=== PATIENT | male | born 1955 | race Caucasian/White ===

== ENCOUNTER 2019-07-19 14:55 | Inpatient (IN) | payer BC, OTHER ==
[~2019-07-19] VITALS: Ht 193 cm; Wt 133.8 kg
[2019-07-19 15:31] LABS: BASOPHILS # (AUTO) 0.03 x10^3/uL (0-0.1); BASOPHILS % (AUTO) 1 % (0-1); EOSINOPHILS % (AUTO) 2 % (1-7); LYMPHOCYTES # (AUTO) 1.94 x10^3/uL (1-3.4); LYMPHOCYTES % (AUTO) 33 % (22-44); MD NO; MEAN CORPUSCULAR HEMOGLOBIN 32.7 pg (27.5-34.5); MEAN CORPUSCULAR HGB CONC 33.9 g/dL (33.2-36.2); MEAN CORPUSCULAR VOLUME 96.5 fL (81-97); MEAN PLATELET VOLUME 7.6 fL (7.4-10.4); MONOCYTES # (AUTO) 0.58 x10^3/uL (0.2-0.8); MONOCYTES % (AUTO) 10 % (2-9); NEUTROPHILS % (AUTO) 55 % (42-75); PLATELET COUNT 266 x10^3/uL (130-400); RED BLOOD COUNT 4.69 x10^6/uL (4.38-5.82); RED CELL DISTRIBUTION WIDTH 13.6 % (9.4-14.8)
[2019-07-19 15:39] LABS: ALBUMIN 3.9 g/dL (3.4-5.0); ANION GAP 6 mmol/L (5-15); CALCIUM 9.2 mg/dL (8.5-10.1); CHLORIDE 107 mmol/L (98-107); CREATININE 1.05 mg/dL (0.7-1.3)
[2019-07-19 15:42] LABS: TROPONIN I < 0.015 ng/mL (0.000-0.045)
--- NOTE | 2019-07-19 22:13 | NUR ---
THIS IS A 64Y M THAT COMES IN W/ C/O MULTIPLE EPISODES OF DIZZINESS AND SPOTTY VISION YESTERDAY WHILE AT A CONFERENCE FOR WORK IN [place]. PT DENIES SYMPTOMS TODAY AFTER RETURNING HOME BUT IS CONCERNED AND WANTED TO BE CHECKED OUT JUST IN CASE. PT HAS NO MEDICAL HX, PT CONNECTED TO ALL MONITORING VSS. NADN. AT BEDSIDE. CALL LIGHT IN REACH AWAITING FURTHER ORDERS AT THIS TIME.
--- NOTE | 2019-07-19 22:46 | NUR ---
MD AT BEDSIDE TO ASSESS PT AND DISCUSS POC
--- NOTE | 2019-07-19 23:29 | NUR ---
ALL RESULTS BACK AT THIS TIME CHART UP FOR RECHECK
--- NOTE | 2019-07-19 23:43 | NUR ---
AT BEDSIDE TO DISCUSS POC WITH PT AT THIS TIME
--- NOTE | 2019-07-19 23:54 | NUR ---
HOSPITALIST AT BEDSIDE TO ADMIT PT
[2019-07-20] MEDS ORDERED: ACETAMINOPHEN 325 MG TABLET PO PRN
--- NOTE | 2019-07-20 00:14 | NUR ---
REPORT CALLED TO [facility], ALL QUESTIONS ADDRESSED PT READY FOR TRANSPORT
[2019-07-20 00:24] VITALS: BP 143/82
[2019-07-20 05:02] LABS: BASOPHILS # (AUTO) 0.03 x10^3/uL (0-0.1); BASOPHILS % (AUTO) 1 % (0-1); EOSINOPHILS # (AUTO) 0.15 x10^3/uL (0-0.4); EOSINOPHILS % (AUTO) 3 % (1-7); LYMPHOCYTES # (AUTO) 1.75 x10^3/uL (1-3.4); LYMPHOCYTES % (AUTO) 37 % (22-44); MD NO; MEAN CORPUSCULAR HEMOGLOBIN 32.8 pg (27.5-34.5); MEAN CORPUSCULAR HGB CONC 33.9 g/dL (33.2-36.2); MEAN CORPUSCULAR VOLUME 96.8 fL (81-97); MEAN PLATELET VOLUME 7.8 fL (7.4-10.4); MONOCYTES # (AUTO) 0.47 x10^3/uL (0.2-0.8); MONOCYTES % (AUTO) 10 % (2-9); NEUTROPHILS # (AUTO) 2.37 x10^3/uL (1.8-6.8); NEUTROPHILS % (AUTO) 50 % (42-75); PLATELET COUNT 232 x10^3/uL (130-400); RED CELL DISTRIBUTION WIDTH 13.6 % (9.4-14.8)
[2019-07-20 05:14] LABS: ANION GAP 4 mmol/L (5-15); CHLORIDE 110 mmol/L (98-107)
[2019-07-20 05:19] LABS: CREATININE 0.89 mg/dL (0.7-1.3); TROPONIN I < 0.015 ng/mL (0.000-0.045)
[2019-07-20 08:40] VITALS: BP 130/78
[2019-07-20 14:02] VITALS: BP 141/74
[2019-07-20 15:30] VITALS: BP 144/84
[2019-07-20] MEDS ORDERED: POTASSIUM CHLORIDE 20 MEQ TAB.ER.PRT PO ONE ×2 (15:30→21:30)
[2019-07-20] MEDS: METOPROLOL TARTRATE 50 MG TABLET PO SCH ×2 (17:07→21:44)
[2019-07-20 19:04] VITALS: BP 129/81
[2019-07-20 21:39] VITALS: BP 120/72
[2019-07-21 00:52] VITALS: BP 130/79
[2019-07-21 05:11] LABS: ALBUMIN 3.4 g/dL (3.4-5.0); ANION GAP 7 mmol/L (5-15); CHLORIDE 110 mmol/L (98-107)
[2019-07-21 05:14] LABS: ALANINE AMINOTRANSFERASE 41 U/L (12-78); ALKALINE PHOSPHATASE 86 U/L (45-117); BILIRUBIN,TOTAL 0.8 mg/dL (0.2-1.0); CREATININE 0.92 mg/dL (0.7-1.3); TOTAL PROTEIN 7.6 g/dL (6.4-8.2)
[2019-07-21 05:25] VITALS: BP 136/82
[2019-07-21] MEDS: METOPROLOL TARTRATE 50 MG TABLET PO SCH (05:29)
[2019-07-21] MEDS ORDERED: METO25TA91 PO ×2 (09:08)
[2019-07-21 09:50] VITALS: BP 112/69
[2019-07-21] MEDS ORDERED: METO25TA35 PO (10:47)
== END 2019-07-21 11:13 | disposition home or self-care (01) | DRG 310 ==
LOC: ED 22:52 → EDIP 23:45 → 5SO 07-20 00:20 → DCLOUNGE 07-21 11:04
PROVIDERS: ADMIT Internal Medicine; ATTEND Internal Medicine
DX: I47.1 Supraventricular tachycardia (principal); J44.9 Chronic obstructive pulmonary disease, unspecified; Z82.49 Family history of ischemic heart disease and other diseases of the circulatory system; Z87.891 Personal history of nicotine dependence
CPT/HCPCS: 36415; 71046; 80048; 80053; 82040; 83735; 84100; 84443; 84484; 85025; 85379; 93005; 93306; 93880; 99285; G0378

== ENCOUNTER 2019-08-15 14:11 | Emergency (ER) | payer OTHER ==
[~2019-08-15] VITALS: Ht 193 cm; Wt 123.7 kg
[~2019-08-15 14:11] MED LIST: METO25TA35 PO; METO25TA91 PO
--- NOTE | 2019-08-15 15:07 | NUR ---
ASSUMING CARE OF PT AT THIS TIME.
[2019-08-15 15:18] VITALS: BP 124/75
--- NOTE | 2019-08-15 15:39 | NUR ---
PT PRESENTING TO ER AFTER BEING SENT BY HOME CARE ASSOCIATE FOR ABNORMAL EKG SHOWING AFIB. PT STS CAN FEEL HIS HEART BEAT HARDER AT TIMES BUT NO PAIN ASSOCIATED. CONNECTED TO ALL MONITORING, VSS, NOTED PACs PRESENT. RECENTLY STARTED ON METOPROLOL 75MG TID, ONLY NEW MED. AT BEDSIDE. CALL LIGHT WITHIN REACH. ORDERS RECEIVED. LAB AT BEDSIDE NOW.
[2019-08-15 15:50] LABS: BASOPHILS # (AUTO) 0.03 x10^3/uL (0-0.1); BASOPHILS % (AUTO) 1 % (0-1); EOSINOPHILS % (AUTO) 2 % (1-7); LYMPHOCYTES # (AUTO) 1.52 x10^3/uL (1-3.4); LYMPHOCYTES % (AUTO) 29 % (22-44); MD NO; MEAN CORPUSCULAR HEMOGLOBIN 32.7 pg (27.5-34.5); MEAN CORPUSCULAR HGB CONC 33.8 g/dL (33.2-36.2); MEAN CORPUSCULAR VOLUME 96.7 fL (81-97); MEAN PLATELET VOLUME 8.3 fL (7.4-10.4); MONOCYTES % (AUTO) 8 % (2-9); NEUTROPHILS # (AUTO) 3.18 x10^3/uL (1.8-6.8); NEUTROPHILS % (AUTO) 61 % (42-75); PLATELET COUNT 220 x10^3/uL (130-400); RED BLOOD COUNT 4.56 x10^6/uL (4.38-5.82); RED CELL DISTRIBUTION WIDTH 13.4 % (9.4-14.8)
[2019-08-15 15:59] LABS: ALANINE AMINOTRANSFERASE 43 U/L (12-78); ALBUMIN 3.4 g/dL (3.4-5.0); ANION GAP 8 mmol/L (5-15); CHLORIDE 109 mmol/L (98-107)
[2019-08-15 16:04] LABS: ALKALINE PHOSPHATASE 95 U/L (45-117); BILIRUBIN,TOTAL 0.5 mg/dL (0.2-1.0); CREATININE 0.95 mg/dL (0.7-1.3); TOTAL PROTEIN 7.3 g/dL (6.4-8.2); TROPONIN I < 0.015 ng/mL (0.000-0.045)
--- NOTE | 2019-08-15 16:07 | NUR ---
ALL RESULTS BACK AT THIS TIME, CHART UP FOR RECHECK
== END 2019-08-15 16:58 | disposition home or self-care (01) ==
LOC: ED 16:02
DX: R00.2 Palpitations (principal); M10.9 Gout, unspecified; R94.31 Abnormal electrocardiogram [ECG] [EKG]
CPT/HCPCS: 36415; 71045; 80053; 83880; 84484; 85025; 93005; 99285